=== PATIENT | male | born 2005 | race Two or more races ===

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

== ENCOUNTER → 2024-05-18 | Outpatient (CLI) | payer BC | END | disposition home or self-care (01) | LOC: RAD 11:06 | DX: S62.001D Unspecified fracture of navicular [scaphoid] bone of right wrist, subsequent encounter for fracture with routine healing (principal); M25.531 Pain in right wrist; X58.XXXD Exposure to other specified factors, subsequent encounter | CPT/HCPCS: 73110 ==